=== PATIENT | female | born 1940 | race American Indian/Alaskan Native ===

== ENCOUNTER 2018-09-01 17:54 | Emergency (ER) | payer MEDICARE ==
[2018-09-01 18:40] VITALS: BP 149/84
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
[2018-09-01] MEDS ORDERED: IBUPROFEN PO STA (18:43)
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
[2018-09-01] MEDS ORDERED: IBUPROFEN PO ONE (21:04)
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
== END 2018-09-01 22:52 | disposition home or self-care (01) ==
LOC: ED 17:54
DX: S80.02XA Contusion of left knee, initial encounter (principal); S80.01XA Contusion of right knee, initial encounter; I10 Essential (primary) hypertension; M19.90 Unspecified osteoarthritis, unspecified site; V87.7XXA Person injured in collision between other specified motor vehicles (traffic), initial encounter; Y93.89 Activity, other specified; Y92.488 Other paved roadways as the place of occurrence of the external cause; Y99.8 Other external cause status
CPT/HCPCS: 99283